=== PATIENT | male | born 1950 | race Caucasian/White ===

== ENCOUNTER 2023-07-23 21:04 | Emergency (ER) | payer MEDICARE ==
[~2023-07-23] VITALS: Ht 162.6 cm; Wt 62.1 kg
[~2023-07-23 21:04] MED LIST: LOSA25 PO; METPRE4DP PO; OMEP20ER PO
[2023-07-23 21:41] LABS: BASOPHILS ABSOLUTE AUTO 0.05 K/mm3 (0.00-0.23); BASOPHILS PERCENT AUTO 1 % (0-2); EOSINOPHILS ABSOLUTE AUTO 0.05 K/mm3 (0.00-0.68); EOSINOPHILS PERCENT AUTO 1 % (0-6); Hemoglobin 12.9 g/dL (13.5-17.5); IMMATURE GRAN ABSOLUTE AUTO 0.02 K/mm3 (0.00-0.10); IMMATURE GRAN PERCENT AUTO 0 % (0-1); LYMPHOCYTES ABSOLUTE AUTO 1.08 K/mm3 (0.84-5.20); LYMPHOCYTES PERCENT AUTO 14 % (21-46); MONOCYTES ABSOLUTE AUTO 0.68 K/mm3 (0.16-1.47); MONOCYTES PERCENT AUTO 9 % (4-13); Mean Corpuscular HGB 28.2 pg (26.0-34.0); Mean Corpuscular HGB Conc 33.1 g/dL (31.5-36.5); Mean Corpuscular Volume 85 fL (80-100); Mean Platelet Volume 9.1 fL (9.1-12.4); NEUTROPHILS ABSOLUTE AUTO 5.79 K/mm3 (1.96-9.15); NEUTROPHILS PERCENT AUTO 75 % (41-73); Platelet Count 193 K/mm3 (150-400); RDW Coefficient Variation 15.2 % (11.7-14.2); RDW Standard Deviation 46.8 fL (35.1-46.3); Red Blood Cell Count 4.58 M/mm3 (4.30-5.90); White Blood Cell Count 7.67 K/mm3 (4.00-11.30)
[2023-07-23 21:58] LABS: Albumin, Blood 3.8 g/dL (3.4-5.0); Albumin/Globulin Ratio 0.9 (0.8-1.8); Bilirubin, Total 0.4 mg/dL (0.1-1.0); Bun/Creatinine Ratio 17.8 (12.0-20.0); Creatinine, Blood 1.35 mg/dL (0.60-1.20); Globulin, Blood 4.3 g/dL (2.2-4.0); Potassium, Blood 4.4 mmol/L (3.5-5.5); Total Protein, Blood 8.1 g/dL (6.4-8.2)
[2023-07-24 00:15] VITALS: BP 145/88
[2023-07-24 00:54] LABS: Source, Urine Clean Catch
[2023-07-24 00:58] LABS: Appearance, Urine Clear (Clear); Bilirubin, Urine Neg (Neg); Blood, Urine 2+ (Neg); Color, Urine Yellow (P-Yellow); Glucose Qualitative, Urine Neg (Neg); Ketones, Urine Neg (Neg); Leukocyte Esterase, Urine Neg (Neg); Nitrite, Urine Neg (Neg); Protein, Urine 1+ (Neg); Specific Gravity, Urine 1.015 (1.003-1.022); Urobilinogen, Urine NORM (Normal)
[2023-07-24 01:15] LABS: Bacteria Rare /hpf; Red Blood Cells, Urine 0-2 /hpf (0-2); Squamous Epithelial Cells Not Seen /hpf (Few); White Blood Cells, Urine 0-2 /hpf (0-5)
[2023-07-24] MEDS ORDERED: ONDA4ODT MM ×2 (02:01→02:04)
[2023-07-24] MEDS ORDERED: DICY20 PO ×2 (02:01→02:04)
[2023-07-24] MEDS ORDERED: FAMO20 PO ×2 (02:03→02:04)
== END 2023-07-24 02:48 | disposition home or self-care (01) ==
LOC: ER 21:04
PROVIDERS: Student in an Organized Health Care Education/Training Program
DX: C15.9 Malignant neoplasm of esophagus, unspecified (principal); Z79.899 Other long term (current) drug therapy
CPT/HCPCS: 74177; 80053; 81001; 83690; 85025; 96374-59; 99284-25; A9270; J1885; J2405; Q9967

== ENCOUNTER 2023-07-24 21:02 | Emergency (ER) | payer MEDICARE ==
[~2023-07-24] VITALS: Ht 162.6 cm; Wt 61.7 kg
[~2023-07-24 21:02] MED LIST changes: +DICY20 PO; +FAMO20 PO; +ONDA4ODT MM
[2023-07-24 21:18] VITALS: BP 140/97
== END 2023-07-24 22:10 | disposition home or self-care (01) ==
LOC: ER 21:02
DX: R11.2 Nausea with vomiting, unspecified (principal); Z79.899 Other long term (current) drug therapy
CPT/HCPCS: 99282; A9270

== ENCOUNTER 2023-08-06 19:08 | Emergency (ER) | payer MEDICARE ==
[~2023-08-06] VITALS: Ht 172.7 cm; Wt 61.2 kg
[2023-08-06 19:25] VITALS: BP 182/106
== END 2023-08-06 19:35 | disposition home or self-care (01) ==
LOC: ER 19:08
DX: R14.0 Abdominal distension (gaseous) (principal); C15.9 Malignant neoplasm of esophagus, unspecified; R11.0 Nausea; I10 Essential (primary) hypertension; Z79.899 Other long term (current) drug therapy
CPT/HCPCS: 99282

== ENCOUNTER 2023-08-16 09:46 | Day surgery (SDC) | payer MEDICARE ==
[~2023-08-16] VITALS: Ht 162.6 cm; Wt 60.7 kg
[2023-08-16 12:45] VITALS: BP 99/64
--- NOTE | 2023-08-16 12:58 | NUR ---
08/16/23 1258 CLARA GARCES DURING PROCEDURE IT WAS DISCOVERED PT HAS GASTRIC ULCER AND WE WERE UNABLE TO TRAVERSE THE SMALL BOWEL DUE TO INFLAMMATION AND THICKENING. IN TO TALK WITH PATIENT POST PROCEDURE AND THIS RN ACCOMPANIED. PT WAS CONFUSED DURING DISCUSSION AND WISHED TO BE "SENT HOME" AND WANTED TO KNOW "WHAT CAN I DO AT HOME". THIS RN AND DOCTOR MARTINEZ EDUCATED PATIENT THAT WITH HX OF ESOPHAGEAL CA, AND IMAGING IN THE LAST YEAR WITH ENLARGED LYMPH NODES CONCERNING FOR CA, IT IS CONCERNING THAT THE AREA IN HIS SMALL BOWEL IS CONCERNING FOR MALIGNANCY AND DR. HENRIQUEZ RECOMMENDS THE PATIENT BE DISCHARGED FROM [facility] AND PRESENT TO ER FOR ADMISSION TO THE HOSPITAL. PT WAS COUNSELED THAT THIS WAS FOR SURGICAL CONSULT, RECURRENT IMAGING, LABS, AND POSSIBLE HYDRATION. PT WAS COUNSELED THAT HE HAS MULTIPLE PROBLEMS, (ULCER AND THICKENING) THAT WOULD MOST LIKELY NOT RESOLVE ON THEIR OWN AND THAT IS THE REASON FOR ER RECOMMENDATION. AT THIS TIME DR. HENRIQUEZ DOES NOT HAVE ANY RECOMMENDATIONS FOR PATIENT TO IMPROVE AT HOME HE IS NOT TOLERATING PO INTAKE AND COMPLAINS OF WEAKNESS, WEIGHT LOSS, AND NAUSEA/VOMITING. PT SPOKE WITH SON VIA PHONE, AND THIS RN, AND DECISION WAS MADE THAT PT WAS WILLING TO GO TO ER TO BE SEEN. PT DC'D FROM [facility], AND ESCORTED VIA TO ER.
[2023-08-16] MEDS ORDERED: ONDA4ODT MM (17:50)
[2023-08-28 08:59] LABS: Performing Lab SYMBIODX; Test Name PD-L1 NON LUNG
== END 2023-08-16 12:48 | disposition home or self-care (01) ==
LOC: ORSCSDS 09:46
PROVIDERS: Internal Medicine Gastroenterology; Pathology Anatomic Pathology & Clinical Pathology
PROC: 0DB48ZX Excision of Esophagogastric Junction, Via Natural or Artificial Opening Endoscopic, Diagnostic (ICD-10-PCS; principal; 2023-08-16 11:00)
PROC: 0DB88ZX Excision of Small Intestine, Via Natural or Artificial Opening Endoscopic, Diagnostic (ICD-10-PCS; principal; 2023-08-16 11:00)
DX: K92.0 Hematemesis (principal); R63.4 Abnormal weight loss; C15.9 Malignant neoplasm of esophagus, unspecified; Z85.01 Personal history of malignant neoplasm of esophagus; Z79.899 Other long term (current) drug therapy; R11.2 Nausea with vomiting, unspecified; C79.9 Secondary malignant neoplasm of unspecified site; Z87.891 Personal history of nicotine dependence
CPT/HCPCS: 74177; 80053; 85025; 88305; 88360; 96361; 96374; 99284-25; A9270; C9113; J2704; J7030; J7120; Q9967

== ENCOUNTER 2023-08-20 15:33 | Emergency (ER) | payer MEDICARE ==
[~2023-08-20] VITALS: Ht 162.6 cm; Wt 56.2 kg
[2023-08-20 16:27] LABS: BASOPHILS ABSOLUTE AUTO 0.02 K/mm3 (0.00-0.23); BASOPHILS PERCENT AUTO 0 % (0-2); EOSINOPHILS PERCENT AUTO 0 % (0-6); Hematocrit 37.2 % (37.0-53.0); Hemoglobin 12.4 g/dL (13.5-17.5); IMMATURE GRAN ABSOLUTE AUTO 0.06 K/mm3 (0.00-0.10); IMMATURE GRAN PERCENT AUTO 1 % (0-1); LYMPHOCYTES ABSOLUTE AUTO 0.53 K/mm3 (0.84-5.20); LYMPHOCYTES PERCENT AUTO 4 % (21-46); MONOCYTES ABSOLUTE AUTO 0.56 K/mm3 (0.16-1.47); MONOCYTES PERCENT AUTO 5 % (4-13); Mean Corpuscular HGB 28.9 pg (26.0-34.0); Mean Corpuscular HGB Conc 33.3 g/dL (31.5-36.5); Mean Corpuscular Volume 87 fL (80-100); Mean Platelet Volume 9.2 fL (9.1-12.4); NEUTROPHILS ABSOLUTE AUTO 10.95 K/mm3 (1.96-9.15); NEUTROPHILS PERCENT AUTO 90 % (41-73); Platelet Count 284 K/mm3 (150-400); RDW Coefficient Variation 15.3 % (11.7-14.2); RDW Standard Deviation 48.8 fL (35.1-46.3); Red Blood Cell Count 4.29 M/mm3 (4.30-5.90); White Blood Cell Count 12.12 K/mm3 (4.00-11.30)
[2023-08-20 16:46] LABS: Albumin, Blood 3.1 g/dL (3.4-5.0); Albumin/Globulin Ratio 0.7 (0.8-1.8); Bilirubin, Total 0.4 mg/dL (0.1-1.0); Bun/Creatinine Ratio 15.4 (12.0-20.0); Calcium, Blood 8.9 mg/dL (8.5-10.1); Creatinine, Blood 1.3 mg/dL (0.60-1.20); Globulin, Blood 4.6 g/dL (2.2-4.0); Potassium, Blood 4.9 mmol/L (3.5-5.5); Total Protein, Blood 7.7 g/dL (6.4-8.2)
[2023-08-20] MEDS ORDERED: OMEP20ER PO (19:25)
[2023-08-20 19:30] VITALS: BP 136/87
== END 2023-08-20 20:00 | disposition home or self-care (01) ==
LOC: ER 15:33
PROVIDERS: Student in an Organized Health Care Education/Training Program
DX: R11.2 Nausea with vomiting, unspecified (principal); Z79.899 Other long term (current) drug therapy
CPT/HCPCS: 74022; 80053; 83690; 85025; 96361; 96374; 99283-25; J0780; J7030

== ENCOUNTER 2023-10-04 05:55 | Day surgery (SDC) | payer MEDICARE ==
[2023-10-04 10:25] VITALS: BP 120/70
[2023-10-04] MEDS ORDERED: OXYC5 PO (10:29)
--- NOTE | 2023-10-04 11:41 | NUR ---
STOP TIME: 0158
== END 2023-10-04 11:30 | disposition home or self-care (01) ==
LOC: ATC 05:55
DX: K63.89 Other specified diseases of intestine (principal); C15.9 Malignant neoplasm of esophagus, unspecified
CPT/HCPCS: 96360; J1642; J7042

== ENCOUNTER 2023-10-05 02:03 | Day surgery (SDC) | payer MEDICARE ==
[~2023-10-05 02:03] MED LIST changes: +OXYC5 PO
[2023-10-05 09:59] VITALS: BP 126/72
== END 2023-10-05 11:04 | disposition home or self-care (01) ==
LOC: ATC 02:03
DX: K63.89 Other specified diseases of intestine (principal); C15.9 Malignant neoplasm of esophagus, unspecified; K31.1 Adult hypertrophic pyloric stenosis; Z93.1 Gastrostomy status; D72.829 Elevated white blood cell count, unspecified; N17.9 Acute kidney failure, unspecified; N13.30 Unspecified hydronephrosis; I48.0 Paroxysmal atrial fibrillation; E43 Unspecified severe protein-calorie malnutrition; Z68.1 Body mass index [BMI] 19.9 or less, adult; Z79.899 Other long term (current) drug therapy
CPT/HCPCS: 96360; J1642; J7042

== ENCOUNTER 2023-10-06 02:25 | Day surgery (SDC) | payer MEDICARE ==
[2023-10-06 13:59] VITALS: BP 103/66
== END 2023-10-06 15:09 | disposition home or self-care (01) ==
LOC: ATC 02:25
DX: K63.89 Other specified diseases of intestine (principal)
CPT/HCPCS: 96360; J1642; J7042

== ENCOUNTER 2023-10-18 15:01 | Day surgery (SDC) | payer MEDICARE ==
[2023-10-18 15:53] VITALS: BP 125/80
== END 2023-10-18 15:53 | disposition home or self-care (01) ==
LOC: ATC 15:01
DX: C16.0 Malignant neoplasm of cardia (principal); D72.829 Elevated white blood cell count, unspecified; E87.1 Hypo-osmolality and hyponatremia
CPT/HCPCS: 96523; J1642

== ENCOUNTER 2023-10-25 02:02 | Day surgery (SDC) | payer MEDICARE ==
[2023-10-25 11:58] VITALS: BP 136/82
== END 2023-10-25 11:58 | disposition home or self-care (01) ==
LOC: ATC 02:02
DX: Z45.2 Encounter for adjustment and management of vascular access device (principal); K63.89 Other specified diseases of intestine; Z93.1 Gastrostomy status; Z85.01 Personal history of malignant neoplasm of esophagus; E43 Unspecified severe protein-calorie malnutrition; N13.30 Unspecified hydronephrosis; K31.1 Adult hypertrophic pyloric stenosis; I48.0 Paroxysmal atrial fibrillation; Z68.1 Body mass index [BMI] 19.9 or less, adult; Z66 Do not resuscitate; Z79.899 Other long term (current) drug therapy
CPT/HCPCS: 96523; J1642

== ENCOUNTER 2023-11-01 03:24 | Day surgery (SDC) | payer MEDICARE ==
[2023-11-01 11:43] VITALS: BP 121/71
== END 2023-11-01 11:48 | disposition home or self-care (01) ==
LOC: ATC 03:24
DX: K63.89 Other specified diseases of intestine (principal); C15.9 Malignant neoplasm of esophagus, unspecified; I48.91 Unspecified atrial fibrillation; N13.30 Unspecified hydronephrosis; Z93.1 Gastrostomy status; Z86.711 Personal history of pulmonary embolism; Z66 Do not resuscitate
CPT/HCPCS: 96523; J1642

== ENCOUNTER 2024-07-09 05:39 | Observation (INO) | payer MEDICARE ==
[~2024-07-09] VITALS: Ht 162.6 cm; Wt 61.0 kg
[2024-07-09] MEDS ORDERED: NS 1,000 ML IV SCH (07:25)
[2024-07-09] MEDS ORDERED: Ondansetron HCl 2 MG / ML 2ML Vial IV ONE (07:25)
[2024-07-09] MEDS ORDERED: FentaNYL Citrate 50 MCG/ML 2 ML Injection IV ONE (07:25)
[2024-07-09 07:56] LABS: BASOPHILS ABSOLUTE AUTO 0.07 K/mm3 (0.00-0.23); BASOPHILS PERCENT AUTO 1 % (0-2); EOSINOPHILS ABSOLUTE AUTO 0.28 K/mm3 (0.00-0.68); EOSINOPHILS PERCENT AUTO 3 % (0-6); Hematocrit 46.2 % (37.0-53.0); Hemoglobin 15.5 g/dL (13.5-17.5); IMMATURE GRAN ABSOLUTE AUTO 0.03 K/mm3 (0.00-0.10); IMMATURE GRAN PERCENT AUTO 0 % (0-1); LYMPHOCYTES ABSOLUTE AUTO 0.81 K/mm3 (0.84-5.20); LYMPHOCYTES PERCENT AUTO 9 % (21-46); MONOCYTES ABSOLUTE AUTO 1.17 K/mm3 (0.16-1.47); MONOCYTES PERCENT AUTO 13 % (4-13); Mean Corpuscular HGB 33.3 pg (26.0-34.0); Mean Corpuscular HGB Conc 33.5 g/dL (31.5-36.5); Mean Corpuscular Volume 99 fL (80-100); Mean Platelet Volume 9.9 fL (9.1-12.4); NEUTROPHILS ABSOLUTE AUTO 6.64 K/mm3 (1.96-9.15); NEUTROPHILS PERCENT AUTO 74 % (41-73); Platelet Count 132 K/mm3 (150-400); RDW Coefficient Variation 14.6 % (11.7-14.2); Red Blood Cell Count 4.66 M/mm3 (4.30-5.90)
[2024-07-09 08:21] LABS: Albumin, Blood 3.3 g/dL (3.4-5.0); Albumin/Globulin Ratio 0.7 (0.8-1.8); Bilirubin, Total 0.8 mg/dL (0.1-1.0); Calcium, Blood 9.1 mg/dL (8.5-10.1); Creatinine, Blood 1.2 mg/dL (0.60-1.20); Globulin, Blood 4.9 g/dL (2.2-4.0); Potassium, Blood 5.1 mmol/L (3.5-5.5); Total Protein, Blood 8.2 g/dL (6.4-8.2)
[2024-07-09] MEDS ORDERED: Ondansetron HCl 2 MG / ML 2ML Vial IV PRN (10:55)
[2024-07-09] MEDS ORDERED: Lactated Ringer's 1,000 ML IV SCH (11:00)
[2024-07-09] MEDS ORDERED: FentaNYL Citrate 50 MCG/ML 2 ML Injection IV PRN (11:00)
[2024-07-09 13:25] VITALS: BP 139/83
[2024-07-09] MEDS ORDERED: HydrALAZINE HCl 20 MG / ML 1ML Vial IV PRN (13:55)
[2024-07-09 15:40] VITALS: BP 126/79
--- NOTE | 2024-07-09 19:42 | NUR ---
SHIFT SUMMARY; PATIENT IS AN ER ADMIT THIS AFTERNOON. HAS SBO. CAME TO ROOM TO CONSULT. PLAN IS TO RECHECK TOMORROW AND SEE IF SURGICAL INTERVENTIONS IS NEEDED. NG TUBE IN PLACE TO LOW INTERMITANT SUCTION. FLUID IS CLEAR TO LIGHT BROWN. SCANT AMOUNT NOTED. PATIENT HAS ICE CHIPS AT BEDSIDE. HE IS NPO PER ORDER. DENIES ANY PAIN DURING DAY AND REFUSES PAIN MEDICATIONS. VITAL SIGNS ARE STABLE AND WNL. HE IS NOT FEBRILE. NO SKIN ISSUES ARE NOTED. HE HAS A MEDIPORT TO LEFT CHEST WALL. LAST CHEMO FOR ESOPHAGEAL CANCER WAS ONE MONTH AGO.
[2024-07-09 20:04] VITALS: BP 148/79
[2024-07-10 04:40] VITALS: BP 130/78
[2024-07-10 05:56] LABS: Bun/Creatinine Ratio 17.9 (12.0-20.0); Calcium, Blood 8.7 mg/dL (8.5-10.1); Creatinine, Blood 1.06 mg/dL (0.60-1.20); Potassium, Blood 4.1 mmol/L (3.5-5.5)
--- NOTE | 2024-07-10 07:46 | NUR ---
NOC SHIFT SUMMARY PT HAD AN UNEVENTFUL NIGHT. NO N/V. NO PAIN. 0/10. PASSING LOTS OF GAS. NG TUBE PUT OUT 75CC OF BROWN THIN LIQUID OVER THE 12 HOUR SHIFT. WANTS TO EAT. WANTS TO GO HOME.
[2024-07-10 07:47] VITALS: BP 130/81
[2024-07-10] MEDS ORDERED: Enoxaparin 40 MG/0.4 ML SYR SC SCH (09:00)
--- NOTE | 2024-07-10 10:18 | NUR ---
DR NUGENT IN WITH PATIENT NOW
--- NOTE | 2024-07-10 10:45 | NUR ---
DR MEJÍA ROUNDED THIS AM, REMOVED NG TUBE, STARTED PATIENT ON CLEAR LIQUIDS, PATIENT TOLERATED WELL, DR NUGENT ROUNDED AND NOW PATIENT STARTED ON REGUALR DIET, PASSING FLATEUS, PATIENT VERY IMPATIENT TO BE DISCHARGED, DR NUGENT EXPLAINED WE HAVE TO WAIT AND SEE HOW HE DOES WITH REGULAR FOOD, AMBULATED IN HALLS, CALL LIGHT WITH IN REACH
[2024-07-10] MEDS ORDERED: DOCU100 PO (11:35)
[2024-07-10] MEDS ORDERED: POLYETHYLENE G500 G1 PO (11:35)
--- NOTE | 2024-07-10 13:25 | NUR ---
1210 DISCHARGED HOME, INSTRUCTIONS GIVEN TO PATIENT, PATIENT REPORTED UNDERSTANDING OF MEDICATIONS, NEEDS, AND FOLLOW UP, DENIED FURTHER QUESTIONS
== END 2024-07-10 12:30 | disposition home or self-care (01) ==
LOC: ER 05:39 → MEDS 05:40
PROVIDERS: Emergency Medicine; ADMIT Internal Medicine
DX: K56.600 Partial intestinal obstruction, unspecified as to cause (principal); I10 Essential (primary) hypertension; Z85.01 Personal history of malignant neoplasm of esophagus; Z92.3 Personal history of irradiation; Z92.21 Personal history of antineoplastic chemotherapy; Z66 Do not resuscitate; Z87.891 Personal history of nicotine dependence
CPT/HCPCS: 36415; 74177; 80048; 80053; 85025; 94762; 96361; 96374-59; 96375; 99285-25; G0378; J2405; J3010; J7030; J7120; Q9967

== ENCOUNTER 2024-08-07 07:28 | Inpatient (IN) | payer MEDICARE ==
[~2024-08-07] VITALS: Ht 175.3 cm; Wt 59.5 kg
[~2024-08-07 07:28] MED LIST changes: +DOCU100 PO; +POLYETHYLENE G500 G1 PO
[2024-08-07] MEDS ORDERED: Ondansetron HCl 2 MG / ML 2ML Vial IV ONE (08:05)
[2024-08-07] MEDS ORDERED: HYDROmorphone HCl/Pf 1MG SYR IV ONE (08:05)
[2024-08-07 08:55] LABS: BASOPHILS ABSOLUTE AUTO 0.07 K/mm3 (0.00-0.23); BASOPHILS PERCENT AUTO 1 % (0-2); EOSINOPHILS ABSOLUTE AUTO 0.33 K/mm3 (0.00-0.68); EOSINOPHILS PERCENT AUTO 4 % (0-6); Hematocrit 45.7 % (37.0-53.0); Hemoglobin 15.3 g/dL (13.5-17.5); IMMATURE GRAN ABSOLUTE AUTO 0.03 K/mm3 (0.00-0.10); IMMATURE GRAN PERCENT AUTO 0 % (0-1); LYMPHOCYTES ABSOLUTE AUTO 0.88 K/mm3 (0.84-5.20); LYMPHOCYTES PERCENT AUTO 11 % (21-46); MONOCYTES ABSOLUTE AUTO 0.76 K/mm3 (0.16-1.47); MONOCYTES PERCENT AUTO 10 % (4-13); Mean Corpuscular HGB 32.7 pg (26.0-34.0); Mean Corpuscular HGB Conc 33.5 g/dL (31.5-36.5); Mean Corpuscular Volume 98 fL (80-100); Mean Platelet Volume 9.4 fL (9.1-12.4); NEUTROPHILS ABSOLUTE AUTO 5.84 K/mm3 (1.96-9.15); NEUTROPHILS PERCENT AUTO 74 % (41-73); Platelet Count 136 K/mm3 (150-400); RDW Coefficient Variation 13.8 % (11.7-14.2); RDW Standard Deviation 49.7 fL (35.1-46.3); Red Blood Cell Count 4.68 M/mm3 (4.30-5.90); White Blood Cell Count 7.91 K/mm3 (4.00-11.30)
[2024-08-07 09:12] LABS: Albumin, Blood 3.4 g/dL (3.4-5.0); Albumin/Globulin Ratio 0.8 (0.8-1.8); Bilirubin, Total 0.6 mg/dL (0.1-1.0); Bun/Creatinine Ratio 18.6 (12.0-20.0); Calcium, Blood 9.4 mg/dL (8.5-10.1); Creatinine, Blood 1.02 mg/dL (0.60-1.20); Globulin, Blood 4.4 g/dL (2.2-4.0); Potassium, Blood 4.5 mmol/L (3.5-5.5); Total Protein, Blood 7.8 g/dL (6.4-8.2)
[2024-08-07] MEDS ORDERED: NS 500 ML IV SCH (09:50)
[2024-08-07] MEDS ORDERED: Lidocaine 2% Jelly Uro-Jet TOP ONE (10:40)
[2024-08-07] MEDS ORDERED: LORazepam 2 MG/ML 1ML Injection IV PRN (11:25)
[2024-08-07] MEDS ORDERED: HYDROmorphone HCl/Pf 1MG SYR IV PRN (11:25)
[2024-08-07] MEDS ORDERED: FLU VACC TS2024-25(6MOS UP)/PF 45 MCG/0.5 ML SYRINGE IM ONE (11:25)
[2024-08-07] MEDS ORDERED: Lactated Ringer's 1,000 ML IV SCH (11:25)
[2024-08-07] MEDS ORDERED: Prochlorperazine Edisylate 10 mg Vial IV PRN (11:25)
[2024-08-07 13:02] VITALS: BP 161/89
[2024-08-07] MEDS ORDERED: VITAMIN A PO (13:07)
[2024-08-07] MEDS ORDERED: VITAMIN D PO (13:07)
[2024-08-07 15:16] VITALS: BP 156/96
--- NOTE | 2024-08-07 18:34 | NUR ---
REPORT RECEIVED AND VERIFIED PT ADMITTED TO ROOM 356 WAS ALERT AND ORIENTED HAD NGT IN PLACE AND INCREASED ABD PAIN. PT WAS MEDICATED PER JAN AND ADMIT DONE. NO BILE NOTED IN NGT OUT PUT SO I ADVANCED NGTABOUT 4 INCH, CLR FLUID WAS EVACUATED BUT NO BILE LIKE SUBSTANCE, WILL CONT TO MONITOR. PAIN MANAGMENT IN EFFECT HAVING LITTLE RELIEF FROM MEDICINE BUT IS ASLEEP NOW SO WILL MONITOR WHEN AWAKE
[2024-08-07 19:20] VITALS: BP 148/87
--- NOTE | 2024-08-08 04:28 | NUR ---
SHIFT SUMMARY MEDICATED FOR PAIN 1 TIME, NO NAUSEA OR EMESIS. AROUND 03, BILE BEGAN TO APPEAR IN NG CANNISTER.NPO ECEPT FEW ICE CHIPS. VOIDING IN SMALL QUANTITY, YISSEL URINE
[2024-08-08 05:31] VITALS: BP 127/73
[2024-08-08 05:41] LABS: BASOPHILS ABSOLUTE AUTO 0.02 K/mm3 (0.00-0.23); BASOPHILS PERCENT AUTO 1 % (0-2); EOSINOPHILS PERCENT AUTO 4 % (0-6); Hematocrit 43.4 % (37.0-53.0); Hemoglobin 14.5 g/dL (13.5-17.5); IMMATURE GRAN PERCENT AUTO 0 % (0-1); LYMPHOCYTES PERCENT AUTO 22 % (21-46); MONOCYTES ABSOLUTE AUTO 0.55 K/mm3 (0.16-1.47); MONOCYTES PERCENT AUTO 24 % (4-13); Mean Corpuscular HGB 32.9 pg (26.0-34.0); Mean Corpuscular HGB Conc 33.4 g/dL (31.5-36.5); Mean Corpuscular Volume 98 fL (80-100); Mean Platelet Volume 9.2 fL (9.1-12.4); NEUTROPHILS ABSOLUTE AUTO 1.09 K/mm3 (1.96-9.15); NEUTROPHILS PERCENT AUTO 48 % (41-73); Platelet Count 102 K/mm3 (150-400); RDW Coefficient Variation 13.9 % (11.7-14.2); RDW Standard Deviation 50.3 fL (35.1-46.3); Red Blood Cell Count 4.41 M/mm3 (4.30-5.90); White Blood Cell Count 2.26 K/mm3 (4.00-11.30)
[2024-08-08 06:14] LABS: Calcium, Blood 8.8 mg/dL (8.5-10.1); Potassium, Blood 4.5 mmol/L (3.5-5.5)
[2024-08-08 07:23] VITALS: BP 122/78
--- NOTE | 2024-08-08 16:49 | NUR ---
REPORT RECEIVED VERIFIED PT WANTING TO GO HOME, NGT AT [facility] BILE BEING SUCTIONED. ASSISTED PT UP OUT OF BED AND PT AMBULATED IN QUIÑONES, PT DOING WELL AND WANTING TO SEE . DR ENCARNACION CONVINCED PT TO HAVE SBFT,. PT DOWN FOR PROCEDURE SBFT, PT BACK AND HAD LARGE BM NOW WANTING TO GO HOME, PT THEN WANTED TO GO HOME BUT I WAS ABLE TO CONVINCE PT TO STAY FOR FINAL PROCEDURE. ONCE PROCEDURE WAS DONE DISCHARGE INSTRUCTIONS WERE GIVEN.
== END 2024-08-08 15:57 | disposition home or self-care (01) | DRG 389 ==
LOC: ER 07:28 → MEDS 07:29
PROVIDERS: Emergency Medicine; ADMIT Internal Medicine
PROC: 0DH67UZ Insertion of Feeding Device into Stomach, Via Natural or Artificial Opening (ICD-10-PCS; principal; 2024-08-07)
DX: K56.609 Unspecified intestinal obstruction, unspecified as to partial versus complete obstruction (principal); C15.9 Malignant neoplasm of esophagus, unspecified; J44.9 Chronic obstructive pulmonary disease, unspecified; K59.09 Other constipation; I10 Essential (primary) hypertension; F32.A Depression, unspecified; T50.995A Adverse effect of other drugs, medicaments and biological substances, initial encounter; D72.819 Decreased white blood cell count, unspecified; D69.6 Thrombocytopenia, unspecified; Z87.19 Personal history of other diseases of the digestive system; Z98.890 Other specified postprocedural states; Z79.899 Other long term (current) drug therapy; Z79.891 Long term (current) use of opiate analgesic; Z87.891 Personal history of nicotine dependence
CPT/HCPCS: 36415; 71045; 74177; 74250; 80048; 80053; 83690; 85025; 94762; 96361; 96374-59; 96375; 96376; 99285-25; G0378; J0780; J1170; J2405; J7030; J7120; Q9967

== ENCOUNTER 2024-10-29 20:23 | Inpatient (IN) | payer MEDICARE ==
[~2024-10-29] VITALS: Ht 162.6 cm; Wt 60.3 kg
[~2024-10-29 20:23] MED LIST changes: +VITAMIN A PO; +VITAMIN D PO
[2024-10-29 21:31] LABS: BASOPHILS ABSOLUTE AUTO 0.06 K/mm3 (0.00-0.23); BASOPHILS PERCENT AUTO 1 % (0-2); EOSINOPHILS ABSOLUTE AUTO 0.21 K/mm3 (0.00-0.68); EOSINOPHILS PERCENT AUTO 2 % (0-6); Hematocrit 46.5 % (37.0-53.0); Hemoglobin 15.9 g/dL (13.5-17.5); IMMATURE GRAN ABSOLUTE AUTO 0.02 K/mm3 (0.00-0.10); IMMATURE GRAN PERCENT AUTO 0 % (0-1); LYMPHOCYTES ABSOLUTE AUTO 1.21 K/mm3 (0.84-5.20); LYMPHOCYTES PERCENT AUTO 13 % (21-46); MONOCYTES ABSOLUTE AUTO 0.96 K/mm3 (0.16-1.47); MONOCYTES PERCENT AUTO 10 % (4-13); Mean Corpuscular HGB 32.9 pg (26.0-34.0); Mean Corpuscular HGB Conc 34.2 g/dL (31.5-36.5); Mean Corpuscular Volume 96 fL (80-100); Mean Platelet Volume 9.2 fL (9.1-12.4); NEUTROPHILS ABSOLUTE AUTO 6.95 K/mm3 (1.96-9.15); NEUTROPHILS PERCENT AUTO 74 % (41-73); Platelet Count 131 K/mm3 (150-400); RDW Coefficient Variation 15.4 % (11.7-14.2); Red Blood Cell Count 4.84 M/mm3 (4.30-5.90); White Blood Cell Count 9.41 K/mm3 (4.00-11.30)
[2024-10-29 21:51] LABS: Albumin, Blood 3.5 g/dL (3.4-5.0); Albumin/Globulin Ratio 0.8 (0.8-1.8); Bilirubin, Total 0.8 mg/dL (0.1-1.0); Bun/Creatinine Ratio 16.5 (12.0-20.0); Calcium, Blood 9.5 mg/dL (8.5-10.1); Creatinine, Blood 1.15 mg/dL (0.60-1.20); Globulin, Blood 4.4 g/dL (2.2-4.0); Potassium, Blood 4.5 mmol/L (3.5-5.5); Total Protein, Blood 7.9 g/dL (6.4-8.2)
[2024-10-30] MEDS ORDERED: Lidocaine 2% Jelly Uro-Jet TOP ONE (00:20)
[2024-10-30] MEDS ORDERED: NS 1,000 ML IV SCH ×2 (00:20→01:30)
[2024-10-30] MEDS ORDERED: Ondansetron HCl 2 MG / ML 2ML Vial IV ONE (00:20)
[2024-10-30] MEDS ORDERED: FentaNYL Citrate 50 MCG/ML 2 ML Injection IV PRN (01:30)
[2024-10-30] MEDS ORDERED: FLU VACC TS2024-25(6MOS UP)/PF 45 MCG/0.5 ML SYRINGE IM SCH (01:35)
[2024-10-30] MEDS ORDERED: Ondansetron HCl 2 MG / ML 2ML Vial IV PRN (01:35)
[2024-10-30 05:18] LABS: BASOPHILS ABSOLUTE AUTO 0.04 K/mm3 (0.00-0.23); BASOPHILS PERCENT AUTO 1 % (0-2); EOSINOPHILS ABSOLUTE AUTO 0.05 K/mm3 (0.00-0.68); EOSINOPHILS PERCENT AUTO 1 % (0-6); Hematocrit 47.4 % (37.0-53.0); Hemoglobin 16.2 g/dL (13.5-17.5); IMMATURE GRAN ABSOLUTE AUTO 0.01 K/mm3 (0.00-0.10); IMMATURE GRAN PERCENT AUTO 0 % (0-1); LYMPHOCYTES ABSOLUTE AUTO 0.72 K/mm3 (0.84-5.20); LYMPHOCYTES PERCENT AUTO 11 % (21-46); MONOCYTES ABSOLUTE AUTO 0.68 K/mm3 (0.16-1.47); MONOCYTES PERCENT AUTO 10 % (4-13); Mean Corpuscular HGB 32.6 pg (26.0-34.0); Mean Corpuscular HGB Conc 34.2 g/dL (31.5-36.5); Mean Corpuscular Volume 95 fL (80-100); Mean Platelet Volume 9.4 fL (9.1-12.4); NEUTROPHILS ABSOLUTE AUTO 5.19 K/mm3 (1.96-9.15); NEUTROPHILS PERCENT AUTO 78 % (41-73); Platelet Count 128 K/mm3 (150-400); RDW Coefficient Variation 15.5 % (11.7-14.2); RDW Standard Deviation 54.2 fL (35.1-46.3); Red Blood Cell Count 4.97 M/mm3 (4.30-5.90); White Blood Cell Count 6.69 K/mm3 (4.00-11.30)
[2024-10-30 06:15] LABS: Albumin, Blood 3.6 g/dL (3.4-5.0); Albumin/Globulin Ratio 0.8 (0.8-1.8); Bilirubin, Total 0.9 mg/dL (0.1-1.0); Bun/Creatinine Ratio 19.9 (12.0-20.0); Creatinine, Blood 0.95 mg/dL (0.60-1.20); Globulin, Blood 4.4 g/dL (2.2-4.0); Potassium, Blood 4.6 mmol/L (3.5-5.5)
[2024-10-30 08:52] VITALS: BP 128/82
--- NOTE | 2024-10-30 11:24 | NUR ---
ADMISSION: REPORT RECEIVED FROM ED RN. PT TO UNIT AT ABOUT 0830. PT IS A/O, VSS. NGT PLACED TO LIS. TELE VERIFIED WITH PROVISIONING ANALYST ROD. PT GIVEN CALL LIGHT AND ORIENTED TO ROOM. PT VERBALIZED UNDERSTANDING
--- NOTE | 2024-10-30 14:17 | NUR ---
PT TOLERATING LIQ DIET, NO N/V. NGT DC'D AT THIS TIME
[2024-10-30 14:34] VITALS: BP 115/74
[2024-10-30] MEDS ORDERED: FT SENNA-S 8.61 EACH PO (14:45)
--- NOTE | 2024-10-30 15:49 | NUR ---
DISCHARGE: PACKET PRINTED AND PT EDUCATED. IV DC'D WNL, TIP INTACT. PT LEFT UNIT AT ABOUT 1400
== END 2024-10-30 15:07 | disposition home or self-care (01) | DRG 389 ==
LOC: ER 20:23 → ERHOLD 20:24 → SURS 20:24 → ERHOLD 20:24 → ER 10-30 00:29 → ERHOLD 10-30 00:29 → SURS 10-30 08:30
PROVIDERS: Emergency Medicine; ADMIT Internal Medicine
PROC: 0D9670Z Drainage of Stomach with Drainage Device, Via Natural or Artificial Opening (ICD-10-PCS; principal; 2024-10-29)
DX: K56.50 Intestinal adhesions [bands], unspecified as to partial versus complete obstruction (principal); C16.0 Malignant neoplasm of cardia; I10 Essential (primary) hypertension; R13.10 Dysphagia, unspecified; E86.0 Dehydration; D69.6 Thrombocytopenia, unspecified; K57.30 Diverticulosis of large intestine without perforation or abscess without bleeding; Z92.3 Personal history of irradiation
CPT/HCPCS: 71045; 74018; 80053; 83880; 85025; 96361; 96374; 99285-25; G0378; J2405; J3010; J7030

== ENCOUNTER 2025-08-20 20:35 | Inpatient (IN) | payer MEDICARE ==
[~2025-08-20] VITALS: Ht 162.6 cm; Wt 63.8 kg
[~2025-08-20 20:35] MED LIST changes: +FT SENNA-S 8.61 EACH PO
[2025-08-20 21:17] LABS: BASOPHILS ABSOLUTE AUTO 0.06 K/mm3 (0.00-0.23); BASOPHILS PERCENT AUTO 1 % (0-2); EOSINOPHILS ABSOLUTE AUTO 0.10 K/mm3 (0.00-0.68); EOSINOPHILS PERCENT AUTO 1 % (0-6); Hematocrit 48.2 % (37.0-53.0); Hemoglobin 16.8 g/dL (13.5-17.5); IMMATURE GRAN ABSOLUTE AUTO 0.03 K/mm3 (0.00-0.10); IMMATURE GRAN PERCENT AUTO 0 % (0-1); LYMPHOCYTES ABSOLUTE AUTO 0.89 K/mm3 (0.84-5.20); LYMPHOCYTES PERCENT AUTO 10 % (21-46); MONOCYTES ABSOLUTE AUTO 0.84 K/mm3 (0.16-1.47); MONOCYTES PERCENT AUTO 9 % (4-13); Mean Corpuscular HGB Conc 34.9 g/dL (31.5-36.5); Mean Corpuscular Volume 99 fL (80-100); NEUTROPHILS ABSOLUTE AUTO 7.24 K/mm3 (1.96-9.15); NEUTROPHILS PERCENT AUTO 79 % (41-73); NRBC ABSOLUTE 0.00 K/mm3 (0.00-0.02); NRBC Auto 0.0 /100 WBC (0.0-0.2); Platelet Count 105 K/mm3 (150-400); RDW Coefficient Variation 14.4 % (11.7-14.2); RDW Standard Deviation 51.8 fL (35.1-46.3)
[2025-08-20 21:40] LABS: Alanine Aminotransfer (ALT/SGP 49.0 U/L (12-78); Albumin, Blood 4.2 g/dL (3.4-5.0); Albumin/Globulin Ratio 0.9 (0.8-1.8); Anion Gap 17.0 mmol/L (3-11); Aspartate Aminotrans (AST/SGOT 64.0 U/L (12-37); Bilirubin, Total 0.8 mg/dL (0.1-1.0); Blood Urea Nitrogen 16.0 mg/dL (8-24); CO2, Blood 23.0 mmol/L (21-32); Calcium, Blood 9.8 mg/dL (8.5-10.1); Chloride, Blood 99.0 mmol/L (98-108); Creatinine, Blood 1.17 mg/dL (0.60-1.20); Globulin, Blood 4.7 g/dL (2.2-4.0); Glucose, Blood 116.0 mg/dL (70-99); Potassium, Blood 4.5 mmol/L (3.5-5.5); Sodium, Blood 134.0 mmol/L (136-145); Total Protein, Blood 8.9 g/dL (6.4-8.2)
[2025-08-21] MEDS ORDERED: Ondansetron HCl 2 MG / ML 2ML Vial IV ONE (00:40)
[2025-08-21] MEDS ORDERED: NS 1,000 ML IV SCH (00:40)
[2025-08-21] MEDS ORDERED: Naloxone HCl 0.4MG / ML 1ML Vial IV PRN (00:40)
[2025-08-21] MEDS ORDERED: FentaNYL Citrate 50 MCG/ML 2 ML Injection IV ONE (00:40)
[2025-08-21] MEDS ORDERED: FLU VACC TS2025-26(6MOS UP)/PF 45 MCG/0.5 ML SYRINGE IM SCH (00:40)
[2025-08-21] MEDS ORDERED: Morphine Sulfate 4 MG/1 ML Injection IV PRN ×2 (00:40→11:25)
[2025-08-21] MEDS ORDERED: Ondansetron HCl 2 MG / ML 2ML Vial IV PRN (00:55)
[2025-08-21 07:55] LABS: BASOPHILS ABSOLUTE AUTO 0.04 K/mm3 (0.00-0.23); BASOPHILS PERCENT AUTO 1 % (0-2); EOSINOPHILS ABSOLUTE AUTO 0.03 K/mm3 (0.00-0.68); EOSINOPHILS PERCENT AUTO 1 % (0-6); Hematocrit 43.6 % (37.0-53.0); Hemoglobin 15.1 g/dL (13.5-17.5); IMMATURE GRAN ABSOLUTE AUTO 0.00 K/mm3 (0.00-0.10); IMMATURE GRAN PERCENT AUTO 0 % (0-1); LYMPHOCYTES ABSOLUTE AUTO 0.65 K/mm3 (0.84-5.20); LYMPHOCYTES PERCENT AUTO 11 % (21-46); MONOCYTES ABSOLUTE AUTO 0.79 K/mm3 (0.16-1.47); MONOCYTES PERCENT AUTO 13 % (4-13); Mean Corpuscular HGB Conc 34.6 g/dL (31.5-36.5); Mean Corpuscular Volume 99 fL (80-100); NEUTROPHILS ABSOLUTE AUTO 4.49 K/mm3 (1.96-9.15); NEUTROPHILS PERCENT AUTO 75 % (41-73); NRBC ABSOLUTE 0.00 K/mm3 (0.00-0.02); NRBC Auto 0.0 /100 WBC (0.0-0.2); Platelet Count 89 K/mm3 (150-400); RDW Coefficient Variation 14.5 % (11.7-14.2); RDW Standard Deviation 52.7 fL (35.1-46.3)
[2025-08-21 08:16] LABS: Alanine Aminotransfer (ALT/SGP 38.0 U/L (12-78); Albumin, Blood 3.5 g/dL (3.4-5.0); Albumin/Globulin Ratio 0.9 (0.8-1.8); Anion Gap 11.0 mmol/L (3-11); Aspartate Aminotrans (AST/SGOT 42.0 U/L (12-37); Bilirubin, Total 1.1 mg/dL (0.1-1.0); Blood Urea Nitrogen 17.0 mg/dL (8-24); CO2, Blood 25.0 mmol/L (21-32); Calcium, Blood 8.9 mg/dL (8.5-10.1); Chloride, Blood 102.0 mmol/L (98-108); Creatinine, Blood 1.11 mg/dL (0.60-1.20); Globulin, Blood 4.0 g/dL (2.2-4.0); Glucose, Blood 125.0 mg/dL (70-99); Magnesium, Blood 1.9 mg/dL (1.6-2.4); Potassium, Blood 4.6 mmol/L (3.5-5.5); Sodium, Blood 133.0 mmol/L (136-145); Total Protein, Blood 7.5 g/dL (6.4-8.2)
[2025-08-21] MEDS ORDERED: Ketorolac Tromethamine 30mg Vial IV PRN (11:30)
[2025-08-21 14:56] VITALS: BP 167/96
[2025-08-21] MEDS ORDERED: MIRALAX17 GM PO (15:17)
--- NOTE | 2025-08-21 16:52 | NUR ---
Spiritual Care | Pt. Request Pt. is awake and sitting up in a chair when he welcomed my visit. Pt. is unsettled about this admission and verbalized that he has concerns that it is "different this time." Listen with emapthy and a calming presence. Pt. displays evidence of trust and being more at peace with his sitiuation. Extablished rapport with a lenghty life review. Prayed with Pt. Pt. verbalized gratitude for the spiritual vivian visit.
[2025-08-21 19:43] VITALS: BP 140/86
[2025-08-22 04:21] VITALS: BP 146/86
--- NOTE | 2025-08-22 06:02 | NUR ---
SHIFT SUMMARY PT WITH NGT TO LCS, DRAINING SMALL AMOUNTS OF CLEAR/BILE COLORED DRAINAGE. PT DENIES NAUSEA AND DENIES THE NEED FOR PAIN MEDICATION DURING THE NIGHT. PT DENIES FLATUS. HYPOACTIVE BOWEL SOUNDS CONTINUE. IVF INFUSING PER ORDER. PT AMBULATED IN QUIÑONES AND UP IN ROOM INDEPENDENTLY. SLEPT INTERMITTENTLY DURING THE NIGHT.
[2025-08-22 07:23] VITALS: BP 149/88
[2025-08-22] MEDS ORDERED: Polyethylene Glycol 3350 17 gm PO PRN (13:00)
[2025-08-22] MEDS ORDERED: Polyethylene Glycol 3350 17 gm PO ONE (13:00)
[2025-08-22 13:56] LABS: Albumin, Blood 3.4 g/dL (3.4-5.0); Anion Gap 8 mmol/L (3-11); Blood Urea Nitrogen 23 mg/dL (8-24); CO2, Blood 29 mmol/L (21-32); Calcium, Blood 9.6 mg/dL (8.5-10.1); Chloride, Blood 102 mmol/L (98-108); Creatinine, Blood 1.32 mg/dL (0.60-1.20); Glucose, Blood 106 mg/dL (70-99); Phosphorus, Blood 2.4 mg/dL (2.5-4.9); Potassium, Blood 4.1 mmol/L (3.5-5.5); Sodium, Blood 135 mmol/L (136-145)
[2025-08-22] MEDS ORDERED: BISA5EC PO (14:26)
--- NOTE | 2025-08-22 14:41 | NUR ---
DISCHARGE NOTE: A&OX4 PRIOR TO D/C. BREAK RN REVIEWED D/C EDUCATION AND INFORMATION. IV REMOVED PRIOR TO LEAVING. PT DECLINED STAFF ESCORT OUT OF BUILDING. SELF AMBULATED TO EXIT WITH PERSONAL BELONGINGS.
== END 2025-08-22 14:43 | disposition home or self-care (01) | DRG 390 ==
LOC: ER 20:35 → ERHOLD 08-21 00:36 → MEDS 08-21 00:36
PROVIDERS: Physician Assistant; Student in an Organized Health Care Education/Training Program; ADMIT Student in an Organized Health Care Education/Training Program
PROC: 0D9670Z Drainage of Stomach with Drainage Device, Via Natural or Artificial Opening (ICD-10-PCS; principal; 2025-08-20)
DX: K56.609 Unspecified intestinal obstruction, unspecified as to partial versus complete obstruction (principal); K57.30 Diverticulosis of large intestine without perforation or abscess without bleeding; I10 Essential (primary) hypertension; Z85.01 Personal history of malignant neoplasm of esophagus; Z92.3 Personal history of irradiation; Z85.89 Personal history of malignant neoplasm of other organs and systems
CPT/HCPCS: 36415; 71045; 74177; 80053; 80069; 82947; 83735; 85025; 93005; 93010; 99285-25; A9270; J1885; J2270; J2405; J3010; J7030; J7120; Q9967

== ENCOUNTER → 2025-10-03 | Outpatient (CLI) | payer MEDICARE | LOC: LAB 15:09 | DX: R53.1 Weakness (principal) ==

== ENCOUNTER → 2025-11-14 | Outpatient (CLI) | payer MEDICARE ==
[~2025-11-14] MED LIST changes: +BISA5EC PO; +MIRALAX17 GM PO
[2025-11-14 09:27] LABS: BASOPHILS ABSOLUTE AUTO 0.03 K/mm3 (0.00-0.23); BASOPHILS PERCENT AUTO 1 % (0-2); EOSINOPHILS ABSOLUTE AUTO 0.00 K/mm3 (0.00-0.68); EOSINOPHILS PERCENT AUTO 0 % (0-6); Hematocrit 39.7 % (37.0-53.0); Hemoglobin 14.3 g/dL (13.5-17.5); IMMATURE GRAN ABSOLUTE AUTO 0.02 K/mm3 (0.00-0.10); IMMATURE GRAN PERCENT AUTO 1 % (0-1); LYMPHOCYTES ABSOLUTE AUTO 0.56 K/mm3 (0.84-5.20); LYMPHOCYTES PERCENT AUTO 13 % (21-46); MONOCYTES ABSOLUTE AUTO 0.80 K/mm3 (0.16-1.47); MONOCYTES PERCENT AUTO 18 % (4-13); Mean Corpuscular HGB Conc 36.0 g/dL (31.5-36.5); Mean Corpuscular Volume 102 fL (80-100); NEUTROPHILS ABSOLUTE AUTO 3.02 K/mm3 (1.96-9.15); NEUTROPHILS PERCENT AUTO 68 % (41-73); NRBC ABSOLUTE 0.00 K/mm3 (0.00-0.02); NRBC Auto 0.0 /100 WBC (0.0-0.2); RDW Coefficient Variation 15.1 % (11.7-14.2); RDW Standard Deviation 56.8 fL (35.1-46.3)
[2025-11-14 09:41] LABS: Alanine Aminotransfer (ALT/SGP 96.0 U/L (12-78); Albumin, Blood 3.7 g/dL (3.4-5.0); Albumin/Globulin Ratio 0.8 (0.8-1.8); Anion Gap 16.0 mmol/L (3-11); Aspartate Aminotrans (AST/SGOT 101.0 U/L (12-37); Bilirubin, Total 1.5 mg/dL (0.1-1.0); Blood Urea Nitrogen 24.0 mg/dL (8-24); CO2, Blood 23.0 mmol/L (21-32); Calcium, Blood 9.4 mg/dL (8.5-10.1); Chloride, Blood 95.0 mmol/L (98-108); Creatinine, Blood 1.4 mg/dL (0.60-1.20); Globulin, Blood 4.6 g/dL (2.2-4.0); Glucose, Blood 125.0 mg/dL (70-99); Potassium, Blood 4.0 mmol/L (3.5-5.5); Sodium, Blood 130.0 mmol/L (136-145); Total Protein, Blood 8.3 g/dL (6.4-8.2)
[2025-11-14 09:50] LABS: Platelet Count 48 K/mm3 (150-400)
== END ==
LOC: LAB 09:23 → LAB SHORT 09:23
DX: R53.83 Other fatigue (principal)
CPT/HCPCS: 80053; 84484; 85025